=== PATIENT | female | born 1940 | race Caucasian/White ===

== ENCOUNTER → 2021-05-27 | Outpatient (CLI) | payer MEDICARE, OTHER | LOC: KOH-I 14:43 | DX: S43.004A Unspecified dislocation of right shoulder joint, initial encounter (principal); S42.291A Other displaced fracture of upper end of right humerus, initial encounter for closed fracture; X58.XXXA Exposure to other specified factors, initial encounter | CPT/HCPCS: 73200 ==

== ENCOUNTER → 2021-12-21 | Outpatient (CLI) | payer MEDICARE, OTHER ==
[~2021-12-21] MED LIST: CARAFATE 1 GM TA1 GM PO; DILTIAZEM 24HR120 M1 PO; ELIQUIS5 MG PO; LASIX 40 MG TAB40 MG PO; METOPROLOL SUCC50 MG PO; POTASSIUM CHLO10 MEQ PO; PROTONIX40 MG PO; URSODIOL500 MG PO; VITAMIN D21250 MCG PO
[2021-12-21 11:20] LABS: HEMOGLOBIN 13.4 gm/dl (12.3-15.3); RED BLOOD COUNT 4.04 M/UL (4.00-5.10); WHITE BLOOD COUNT 6.2 K/UL (4.5-11.0)
[2021-12-21 11:51] LABS: BUN/CREATININE RATIO 22 (0-10)
== END ==
LOC: OPSV2 10:50 → EDSTATUS 12:30
PROVIDERS: Orthopaedic Surgery
DX: Z01.818 Encounter for other preprocedural examination (principal)
CPT/HCPCS: 36415; 80048; 85027; 93005

== ENCOUNTER → 2021-12-29 | Outpatient (CLI) | payer MEDICARE, OTHER ==
[~2021-12-29] MED LIST changes: -DILTIAZEM 24HR120 M1 PO; +LIDOCAINE1 EAC1 TP; +MOBIC15 MG PO; +OXYCODONE HCL5 M1 PO; +TIADYLT ER120 MG PO; +ZOFRAN 4 MG TAB4 MG PO
[2021-12-29 13:51] LABS: BUN/CREATININE RATIO 20 (0-10)
== END ==
LOC: LAB 12:05
PROVIDERS: Orthopaedic Surgery
DX: Z01.812 Encounter for preprocedural laboratory examination (principal)
CPT/HCPCS: 36415; 80048; 86850; 86900; 86901

== ENCOUNTER 2021-12-30 07:39 | Day surgery (SDC) | payer MEDICARE, OTHER ==
[~2021-12-30] VITALS: Ht 160 cm; Wt 58.5 kg
[~2021-12-30 07:39] MED LIST changes: -CARAFATE 1 GM TA1 GM PO; -LASIX 40 MG TAB40 MG PO; -LIDOCAINE1 EAC1 TP; -MOBIC15 MG PO; -OXYCODONE HCL5 M1 PO; -PROTONIX40 MG PO; -TIADYLT ER120 MG PO; -VITAMIN D21250 MCG PO; -ZOFRAN 4 MG TAB4 MG PO
[2021-12-30] MEDS ORDERED: CARAFATE 1 GM TA1 GM PO ×2 (11:37→17:16)
[2021-12-30] MEDS ORDERED: TIADYLT ER120 MG PO (11:38)
[2021-12-30] MEDS ORDERED: VITAMIN D21250 MCG PO (11:40)
[2021-12-30] MEDS ORDERED: PROTONIX40 MG PO (11:43)
[2021-12-30] MEDS ORDERED: LASIX 40 MG TAB40 MG PO (11:43)
[2021-12-30] MEDS ORDERED: LIDOCAINE1 EAC1 TP (15:42)
[2021-12-31] MEDS ORDERED: OXYCODONE HCL5 M1 PO (11:00)
[2021-12-31] MEDS ORDERED: MOBIC15 MG PO (11:00)
[2021-12-31] MEDS ORDERED: ZOFRAN 4 MG TAB4 MG PO (11:01)
== END 2021-12-31 12:00 | disposition home or self-care (01) ==
LOC: OR 07:39 → M/S 07:39 → EDSTATUS 10:15 → M/S 13:14 → OR 12-31 12:00
DX: S42.251A Displaced fracture of greater tuberosity of right humerus, initial encounter for closed fracture (principal); K74.60 Unspecified cirrhosis of liver; F03.90 Unspecified dementia, unspecified severity, without behavioral disturbance, psychotic disturbance, mood disturbance, and anxiety; I10 Essential (primary) hypertension; Z88.5 Allergy status to narcotic agent; Z79.01 Long term (current) use of anticoagulants; Z90.49 Acquired absence of other specified parts of digestive tract
CPT/HCPCS: 73030; 97116-GP-CQ; 97162; 97166; 97530; 97535; C1713; C1776; J0592; J0690; J1100; J2001; J2370; J2405; J2704; J2795; J7120